=== PATIENT | male | born 1965 | race Caucasian/White ===

== ENCOUNTER 2021-03-03 21:02 | Emergency (ER) | payer MEDICAID ==
[~2021-03-03] VITALS: Ht 167.6 cm; Wt 95.3 kg
[2021-03-03 21:07] VITALS: BP_SYST 165
--- NOTE | 2021-03-03 21:10 | NUR ---
Came in ER ambulatory from home this 55 year old male, AAOX4, guinean speaker, breathing spontaneously at room air, not in distress noted. With chief complaints of hypertension, left shoulder pain radiating to the arm and back. History of HYpertension and heart attack 2020, left shoulder surgery. Vital signs taken, elevated BP- 165/103mmHg.
[2021-03-03] MEDS ORDERED: LISI10TA29 PO (21:19)
[2021-03-03] MEDS ORDERED: ASPI-858 PO (21:19)
[2021-03-03] MEDS ORDERED: CLOP75TA32 PO (21:19)
--- NOTE | 2021-03-03 21:35 | NUR ---
DR NEWTON IN TO ASSESS
--- NOTE | 2021-03-03 21:45 | NUR ---
UP AMBULATING TO BATHROOM STAEDY GAIT, DENIES CP/SOB. NO DYSPNEA OBSERVED. SKIN WARM AND DRY
--- NOTE | 2021-03-03 21:51 | NUR ---
COVID SWAB PERFORMED BEDSIDE BY AD ASHBY, SAMPLE SENT OVER TO LAB
[2021-03-03 21:55] LABS: BASOPHILS % (AUTO) 0.5 % (0.0-2.0); EOSINOPHILS # (AUTO) 0.1 K/uL (0.0-0.4); EOSINOPHILS % (AUTO) 1.5 % (0.0-4.0); HEMATOCRIT 40.1 % (36-54); HEMOGLOBIN 13.7 g/dL (14.0-18.0); LYMPHOCYTES # (AUTO) 1.8 K/uL (1.0-5.5); LYMPHOCYTES % (AUTO) 22.2 % (20.5-51.5); MEAN CORPUSCULAR HEMOGLOBIN 31 pg (27-31); MEAN CORPUSCULAR HGB CONC 34 % (32-36); MEAN CORPUSCULAR VOLUME 92 fL (79.0-98.0); MONOCYTES # (AUTO) 0.7 K/uL (0.0-1.0); MONOCYTES % (AUTO) 8.4 % (1.7-9.3); NEUTROPHILS # (AUTO) 5.4 K/uL (1.8-7.7); NEUTROPHILS % (AUTO) 67.4 % (40.0-70.0); PLATELET COUNT (AUTO) 161 K/uL (130-430); RED BLOOD CELL COUNT(AUTO) 4.38 MIL/uL (4.2-6.2); RED CELL DISTRIBUTION WIDTH 12.6 % (9.0-15.0)
[2021-03-03 22:21] LABS: ANION GAP 9 (5-15); CALCIUM 8.7 mg/dL (8.4-11.0); CHLORIDE 103 mmol/L (98-107); GFR AFRICAN AMERICAN 112 mL/min (>90); GLUCOSE 158 mg/dL (70-99); POTASSIUM 3.9 mmol/L (3.5-5.1); SODIUM SERUM 138 mmol/L (136-145); UREA NITROGEN, BLOOD 17 mg/dL (8-21)
--- NOTE | 2021-03-03 22:38 | NUR ---
CALM, ALERT, NO DISTRESS, RESP UNLABORED, SR ON MONITOR NO ECTOPY
--- NOTE | 2021-03-03 23:00 | NUR ---
Seen and examined by Dr. Majano, ER attending
[2021-03-04 01:06] VITALS: BP_SYST 156
--- NOTE | 2021-03-04 01:06 | NUR ---
Patient given written and verbal discharge instructions and verbalizes understanding. ER MD discussed with patient the results and treatment provided. Patient in stable condition. ID arm band removed. NO Rx of given. Patient educated on pain management and to follow up with PMD. Pain Scale 0/10. Opportunity for questions provided and answered.
== END 2021-03-04 01:06 | disposition home or self-care (01) ==
LOC: SED 21:02
DX: I10 Essential (primary) hypertension (principal); E11.9 Type 2 diabetes mellitus without complications; Z79.899 Other long term (current) drug therapy; Z20.822 Contact with and (suspected) exposure to COVID-19
CPT/HCPCS: 36415; 71045; 80048; 84484; 85025; 93005; 99285